=== PATIENT | male | born 1985 | race Caucasian/White ===

== ENCOUNTER 2023-05-21 10:44 | Emergency (ER) | payer OTHER ==
[~2023-05-21] VITALS: Ht 172.7 cm; Wt 270.0 kg
[2023-05-21 11:05] VITALS: BP 147/100; PULSE 84; RESP 20; TEMP 97.8; O2SAT 95
== END 2023-05-21 14:44 | disposition home or self-care (01) ==
LOC: ER 10:44
DX: M79.621 Pain in right upper arm (principal)
CPT/HCPCS: 73030; 73060; 73080; 99284